=== PATIENT | female | born 2000 | race American Indian/Alaskan Native ===

== ENCOUNTER 2018-02-10 16:14 | Emergency (ER) | payer MEDICAID, OTHER ==
[2018-02-10] MEDS ORDERED: ZOFRAN ODT PO ONE (18:11)
--- NOTE | 2018-02-10 18:28 | Emergency Department Report ---
Blank Doc - Documentation Documentation: Patient is a 18-year-old Somali female who is presenting with nausea vomiting for one week. Patient states that she can keep down some dry foods such as pretzels and crackers however that she is unable to keep any other foods down. Patient states that she has not taken her last control shot and feels as though this is now worn out. Patient is not sure if she is at this time. Patient has not had a menses since before her last Depo-Provera shot.
[2018-02-10 19:23] LABS: Basophils # (Auto) 0.1 K/mm3 (0.0-0.1); Basophils % (Auto) 0.8 % (0.0-1.8); Eosinophils # (Auto) 0.1 K/mm3 (0.0-0.4); Eosinophils % (Auto) 0.9 % (0.0-4.3); Hematocrit 41.4 % (30.3-42.9); Hemoglobin 13.9 gm/dl (10.1-14.3); Lymphocytes # (Auto) 2.5 K/mm3 (1.2-5.4); Lymphocytes % (Auto) 24.5 % (13.4-35.0); Mean Corpuscular HGB Conc 34 % (30-34); Mean Corpuscular Hemoglobin 28 pg (28-32); Mean Corpuscular Volume 84 fl (79-97); Monocytes # (Auto) 0.3 K/mm3 (0.0-0.8); Monocytes % (Auto) 3.2 % (0.0-7.3); Platelet Count 381 K/mm3 (140-440); Red Blood Count 4.91 M/mm3 (3.65-5.03); Red Cell Distribution Width 14.4 % (13.2-15.2)
--- NOTE | 2018-02-10 19:26 | Emergency Department Report ---
Vomiting/Diarrhea - HPI Chief Complaint: Nausea/Vomiting/Diarrhea Stated Complaint: NAUSEA Time Seen by Provider: 02/10/18 17:55 Duration: 3 Days Severity: mild Nausea/Vomiting Severity: Mild Diarrhea Severity: None Pain Severity: None Symptoms: Yes Able to Tolerate Fluids, No Watery Diarrhea, No Bloody diarrhea, No Fever, No Recent Unusual Foods, No Recent Untreated Water, No Recent use of Antibiotics, No Family w/ Similar Symptoms, No Contacts w/ Similar Symptoms, No Rash, No Hematuria, No Recent URI Symptoms Other History: This is a 18-year-old female nontoxic, well nourished in appearance, no acute signs of distress presents to the ED with c/o of intermittent nausea and vomiting 3 days. Patient stated that she is able to tolerate pretzels and crackers. She is also able to tolerate fluids. Patient states that she has not taken her last control shot and feels as though this is now worn out. Patient is not sure if she is at this time. Patient denies any abdominal pain or abdominal distention. Patient denies any urinary symptoms. Patient denies any chest pain, short of breath, fever, chills , headache, stiff neck, back pain. Patient states allergies to bananas strawberries but denies past medical history. ED Review of Systems ROS: Stated complaint: NAUSEA Other details as noted in HPI Constitutional: denies: chills, fever Eyes: denies: eye pain, eye discharge, vision change ENT: denies: ear pain, throat pain Respiratory: denies: cough, shortness of breath, wheezing Cardiovascular: denies: chest pain, palpitations Endocrine: no symptoms reported Gastrointestinal: nausea, vomiting. denies: abdominal pain, diarrhea, constipation Genitourinary: denies: urgency, dysuria, discharge Musculoskeletal: denies: back pain, joint swelling, arthralgia Skin: denies: rash, lesions Neurological: denies: headache, weakness, paresthesias Psychiatric: denies: anxiety, depression Hematological/Lymphatic: denies: easy bleeding, easy bruising ED Past Medical Hx - Past Medical History Previous Medical History?: No Hx Psychiatric Treatment: No - Surgical History Past Surgical History?: No - Social History Smoking Status: Never Smoker Substance Use Type: None - Medications Home Medications: Home Medications Medication Instructions Recorded Confirmed Last Taken Type Acetaminophen/Codeine 1 tab PO Q6H PRN #20 tab 06/20/14 Unknown Rx [Acetaminophen-Codeine #3 TAB] Ibuprofen [Motrin] 600 mg PO Q8H PRN #40 tablet 06/20/14 Unknown Rx Ondansetron [Zofran Odt] 4 mg PO Q8HR PRN #20 tab.rapdis 02/10/18 Unknown Rx Vomiting Diarrhea Exam - Exam General: Vital signs noted. No distress. Alert and acting appropriately. GENERAL: The patient is a well-developed, well-nourished in no apparent distress. Patient is alert and acting appropriately for age. Alert and oriented 3, no apparent distress, normal gait, atraumatic. HEENT: Head is normocephalic and atraumatic. PERRL, Extraocular muscles are intact. Pupils are equal, round, and reactive to light and accommodation. Nares appeared normal. Mouth is well hydrated and without lesions. Mucous membranes are moist. Posterior pharynx clear of any exudate or lesions. Mouth is well hydrated and without lesions. Tonsils not erythematous or swollen. Uvula midline. Tongue elevated. Mucous members are moist. Posterior pharynx clear, no exudate or lesions. Patent airways. NECK: Supple. No carotid bruits. No lymphadenopathy or thyromegaly.nontender. No meningitic signs are noted. LUNGS: Clear to auscultation. Non labor breathing. No intercostal retractions. Symmetrical with respiration, no wheezing, no rales, or crackles. HEART: Regular rate and rhythm without murmur, rubs or gallops. No reproducible. S1, S2 present, regular rate and rhythm without murmur, no rubs, no gallops. ABDOMEN: Soft, nontender, and nondistended. Positive bowel sounds. No hepatosplenomegaly was noted. No guarding or rebound tenderness, negative epigastric bruit. Negative psoas sign, negative yeung sign, negative McBurneys sign EXTREMITIES: Without any cyanosis, clubbing, rash, lesions or edema. Peripheral pulses intact. Capillary refill less than 2 seconds. Full range of motion bilaterally. NEUROLOGIC: Cranial nerves II through XII are grossly intact. Alert and oriented x 3. Normal gait. Symmetrical strength and sensation. Reflexes 2+ throughout. Cerebellar testing normal. GCS score of 15. PSYCHIATRIC: Normal affect with no suicidal or homicidal ideations. HEENT: Yes Moist Mucous Membranes, No Pharyngeal Erythema, No Pharyngeal Exudates, No Rhinorrhea, No Conjuctival Injection, No Frontal Tenderness, No Maxillary Tenderness Neck: No Adenopathy, No Rigidity Lungs: Yes Clear Lung Sounds, Yes Good Air Exchange, No Wheezes, No Stridor, No Cough, No Nasal Flaring, No Retractions, No Use of Accessory Muscles Heart exam: Regular: Yes, Murmur: No, Tachycardia: No Abdomen: Tenderness: No, Peritoneal Signs: No, Distention: No, Hyperactive Bowel sounds: No Skin exam: Rash: No, Edema: No, Normal turgor: Yes Neurologic: Alert and oriented, no deficits. Musculoskeletal: Unremarkable. ED Course Vital Signs 02/10/18 16:25 Temperature 98.6 F Pulse Rate 77 Respiratory 16 Rate Blood Pressure 122/75 O2 Sat by Pulse 99 Oximetry - Reevaluation(s) Reevaluation #1: 02/10/18 19:24 Patient is speaking in full sentences with no signs of distress noted. Reevaluation #2: 02/10/18 19:24 Patient is drinking apple juice after Zofran and patient tolerated well with no nausea vomiting. - Consultations Consultation #1: 02/10/18 19:24 Patient has been consulted with Dr. Pedroza about patient history, physical exam , and labs and examined and screened patient and agrees to ED plan of care and discharge plan of care. ED Medical Decision Making - Medical Decision Making This is a 18-year-old female that presents with nausea vomiting. Patient is stable was examined by me and Dr. Pedroza. Upon examination there is no abdominal tenderness or abdominal distention. Labs and UA obtained. Patient did receive Zofran in the ED which pasted his symptoms has resolved and subsided. Patient drank 2 apple juices in the ED with no nausea vomiting. Patient tolerated well by mouth challenge. Patient is discharged with Zofran. Patient was instructed to Follow-up with a primary care doctor in 3-5 days or if symptoms worsen and continue return to emergency room as soon as possible. At time of discharge, the patient does not seem toxic or ill in appearance. No acute signs of distress noted. Patient agrees to discharge treatment plan of care. No further questions noted by the patient. Critical care attestation.: If time is entered above; I have spent that time in minutes in the direct care of this critically ill patient, excluding procedure time. ED Disposition Clinical Impression: Nausea & vomiting Qualifiers: Vomiting type: unspecified Vomiting Intractability: non-intractable Qualified Code(s): R11.2 - Nausea with vomiting, unspecified Disposition: - TO HOME OR SELFCARE Is pt being admited?: No Does the pt Need Aspirin: No Condition: Stable Instructions: Acute Nausea and Vomiting (ED), Ondansetron (By mouth) Additional Instructions: Follow-up with a primary care doctor in 3-5 days or if symptoms worsen and continue return to emergency room as soon as possible. Prescriptions: Ondansetron [Zofran Odt] 4 mg PO Q8HR PRN #20 tab.rapdis PRN Reason: Nausea Referrals: PRIMARY CARE, [Primary Care Provider] - 3-5 Days SHERIF ELAINE MD [Staff Physician] - 3-5 Days [facility] [Outside] - 3-5 Days [facility] [Outside] - 3-5 Days Forms: Work/School Release Form(ED)
[2018-02-10 19:29] LABS: Bilirubin,Urine NEG (Negative); Blood,Urine NEG (Negative); Color,Urine Yellow (Yellow); Mucus,Urine FEW /HPF; Protein,Urine <15 mg/dL mg/dL (Negative); Urobilinogen,Urine < 2.0 mg/dL (<2.0); WBC,Urine < 1.0 /HPF (0.0-6.0)
[2018-02-10 19:35] LABS: BUN/Creatinine Ratio 14; Blood Urea Nitrogen 7 mg/dL (7-17); Calcium 8.6 mg/dL (8.4-10.2); Hemolysis Index 4; Lipase 26 units/L (13-60)
[2018-02-10 19:38] LABS: HCG Qualitative,Urine Negative (Negative)
[2018-02-10 19:59] VITALS: BP 115/70
== END 2018-02-10 19:54 | disposition home or self-care (01) ==
LOC: ED 16:14
DX: R11.2 Nausea with vomiting, unspecified (principal)
CPT/HCPCS: 36415; 80048; 81001; 81025; 83690; 85025; 99283; Q0162

== ENCOUNTER 2018-06-16 22:34 | Emergency (ER) | payer SELFPAY ==
[2018-06-16 23:48] VITALS: BP 136/83
--- NOTE | 2018-06-17 01:30 | XRay Report ---
FINAL REPORT EXAM: XR CHEST ROUTINE 2V HISTORY: CONNIE/chest congestion TECHNIQUE: PA and lateral views of the chest were obtained. PRIORS: None. FINDINGS: There are no focal consolidations to suggest pneumonia. No large pleural effusion. No pneumothorax. Cardiac silhouette and mediastinal structures are unremarkable. No acute osseous abnormality identified. IMPRESSION: No radiographic evidence of acute cardiopulmonary disease.
--- NOTE | 2018-06-17 01:46 | Emergency Department Report ---
HPI - General Chief Complaint: Upper Respiratory Infection - HPI HPI: Waiting room triage The patient is 18-year-old female presenting with chief complaint of fever and congestion. The patient states for one week she's had fever rhinorrhea nasal congestion and occasional cough productive of dark sputum. Patient admits to occasional nausea with vomiting. Location: [See above] Duration: One week Quality: Congested Severity: Moderate Modifying factors: [see above] Context: [see above] Mode of transportation: [not driving] ED Past Medical Hx - Past Medical History Previous Medical History?: No - Surgical History Past Surgical History?: No - Family History Family history: no significant - Social History Smoking Status: Never Smoker Substance Use Type: Alcohol (occasional) - Medications Home Medications: Home Medications Medication Instructions Recorded Confirmed Last Taken Type Acetaminophen/Codeine 1 tab PO Q6H PRN #20 tab 06/20/14 Unknown Rx [Acetaminophen-Codeine #3 TAB] Ibuprofen [Motrin] 600 mg PO Q8H PRN #40 tablet 06/20/14 Unknown Rx Ondansetron [Zofran Odt] 4 mg PO Q8HR PRN #20 tab.rapdis 02/10/18 Unknown Rx Azithromycin [Zithromax Z-IDRIS] 0 mg PO DAILY #6 tab 06/17/18 Unknown Rx Benzonatate [Tessalon Perle] 100 mg PO TID PRN #30 capsule 06/17/18 Unknown Rx Ibuprofen [Ibu] 800 mg PO Q8H PRN #20 tablet 06/17/18 Unknown Rx Promethazine [Phenergan TAB] 25 mg PO Q6HR PRN #20 tab 06/17/18 Unknown Rx Tramadol HCl [Ultram] 50 - 100 mg PO Q6H PRN #10 tablet 06/17/18 Unknown Rx ED Review of Systems ROS: Stated complaint: FEVER/HEADACHE/CONGESTION Other details as noted in HPI Constitutional: fever Eyes: denies: eye pain ENT: congestion Respiratory: cough Endocrine: no symptoms reported Gastrointestinal: nausea, vomiting Neurological: headache Physical Exam - Physical Exam Vital Signs: Vital Signs 06/16/18 23:46 Pulse Rate 93 H Respiratory 18 Rate Blood Pressure 136/83 O2 Sat by Pulse 98 Oximetry Physical Exam: GENERAL: The patient is well-developed well-nourished female sitting in chair not appearing to be in acute distress HEENT: Normocephalic. Atraumatic. Extraocular motions are intact. Patient has moist mucous membranes. TMs clear bilaterally. Oropharynx clear NECK: Supple. No meningitic signs are noted. There is no nuchal rigidity CHEST/LUNGS: Clear to auscultation. There is no respiratory distress noted. HEART/CARDIOVASCULAR: Regular. There is no tachycardia. There is no gallop rub or murmur. SKIN: There is no rash. There is no edema. There is no diaphoresis. NEURO: The patient is awake, alert, and oriented. The patient is cooperative. The patient has no focal neurologic deficits. The patient has normal speech and gait. Cranial nerves II through XII grossly intact, no drift MUSCULOSKELETAL: There is no evidence of acute injury. ED Course Vital Signs 06/16/18 23:46 Pulse Rate 93 H Respiratory 18 Rate Blood Pressure 136/83 O2 Sat by Pulse 98 Oximetry ED Medical Decision Making - Radiology Data Radiology results: report reviewed (chest x-ray), image reviewed (chest x-ray) interpreted by me: Chest x-ray-no focal infiltrates, no pneumothorax [facility] [address] [place] [address] XRay Report Signed Patient: JOSE ELIAS HERMOSILLO MR#: [id number] : 2000 Acct:[id number] Age/Sex: 18 / F ADM Date: 06/16/18 Loc: ED Attending Dr: Ordering Physician: JASMEET MARES MD Date of Service: 06/16/18 Procedure(s): XR chest routine 2V Accession Number(s): [id number] cc: JASMEET MARES MD Fluoro Time In Minutes: FINAL REPORT EXAM: XR CHEST ROUTINE 2V HISTORY: CONNIE/chest congestion TECHNIQUE: PA and lateral views of the chest were obtained. PRIORS: None. FINDINGS: There are no focal consolidations to suggest pneumonia. No large pleural effusion. No pneumothorax. Cardiac silhouette and mediastinal structures are unremarkable. No acute osseous abnormality identified. IMPRESSION: No radiographic evidence of acute cardiopulmonary disease. Transcribed By: DT Dictated By: RENATE CAIN DO Electronically Authenticated By: RENATE CAIN DO Signed Date/Time: 06/17/18128 DD/ 8 TD/TT: 06/17/18128 - Differential Diagnosis URI Critical care attestation.: If time is entered above; I have spent that time in minutes in the direct care of this critically ill patient, excluding procedure time. ED Disposition Clinical Impression: URI (upper respiratory infection) Disposition: TO HOME OR SELFCARE Is pt being admited?: No Does the pt Need Aspirin: No Condition: Stable Instructions: Upper Respiratory Infection (ED) Additional Instructions: Return to the emergency department immediately should you develop worsening symptoms, fever, inability to tolerate food or liquid or any other concerns. Prescriptions: Azithromycin [Zithromax Z-IDRIS] 0 mg PO DAILY #6 tab Benzonatate [Tessalon Perle] 100 mg PO TID PRN #30 capsule PRN Reason: Cough Ibuprofen [Ibu] 800 mg PO Q8H PRN #20 tablet PRN Reason: Pain, Moderate (4-6) Promethazine [Phenergan TAB] 25 mg PO Q6HR PRN #20 tab PRN Reason: Nausea Tramadol HCl [Ultram] 50 - 100 mg PO Q6H PRN #10 tablet PRN Reason: Pain , Severe (7-10) Referrals: ERNIE CHO MD [Staff Physician] - 3-5 Days Time of Disposition: 01:50
== END 2018-06-17 02:19 | disposition home or self-care (01) ==
LOC: ED 22:34
DX: J06.9 Acute upper respiratory infection, unspecified (principal); R11.2 Nausea with vomiting, unspecified; Z91.018 Allergy to other foods
CPT/HCPCS: 71046; 99283

== ENCOUNTER 2020-12-12 13:22 | Observation (INO) | payer MEDICAID ==
[2020-12-12] MEDS ORDERED: SODIUM CHLORIDE 0.9% 1000 ML 1,000 ML IV ONE (14:03)
[2020-12-12] MEDS ORDERED: ONDANSETRON 4 MG/2 ML INJ IV ONE (14:03)
--- NOTE | 2020-12-12 14:05 | Event Note ---
ED Screening Note Date of service: 12/12/20 Time: 14:05 ED Screening Note: 20-year-old female who was 17 weeks , twin gestation, presents to the ER today with complaints of nausea and vomiting which started the beginning of the week. She states that she went to [facility] where she was diagnosed with a UTI was started on Keflex. She was also prescribed Zofran. Patient states that she has continued to vomit despite taking the Zofran. She also has leftover Phenergan which she is also been taking without much relief of her nausea and vomiting. She also started with diarrhea yesterday. She denies any abdominal pain. She denies any URI symptoms or cough. She denies UTI symptoms. She states she has not been able to tolerate the Keflex due to the vomiting. She is G2, P0 Ab1. OBGYN is Dr Jacobs This initial assessment/diagnostic orders/clinical plan/treatment(s) is/are subject to change based on patients health status, clinical progression and re- assessment by fellow clinical providers in the ED. Further treatment and workup at subsequent clinical providers discretion. Patient/guardian urged not to elope from the ED as their condition may be serious if not clinically assessed and managed. Initial orders include: CBC, CMP, urinalysis, blood cultures and lactic acid
[2020-12-12 14:39] LABS: Hematocrit 38.1 % (30.3-42.9); Hemoglobin 13.2 gm/dl (10.1-14.3); Mean Corpuscular HGB Conc 35 % (30-34); Mean Corpuscular Volume 83 fl (79-97); Platelet Count 332 K/mm3 (140-440); Red Blood Count 4.57 M/mm3 (3.65-5.03); Red Cell Distribution Width 15.3 % (13.2-15.2)
[2020-12-12] MEDS ORDERED: ACETAMINOPHEN 500 MG TAB PO ONE (16:48)
--- NOTE | 2020-12-12 16:54 | Emergency Department Report ---
ED HPI - General Chief complaint: Nausea/Vomiting/Diarrhea Stated complaint: NAUSEA/DIARRHEA/UTI Time Seen by Provider: 12/12/20 13:43 Source: patient Mode of arrival: Ambulatory Limitations: No Limitations - History of Present Illness Initial comments: 20-year-old female, , currently 17 weeks with twin gestation, presents to the ED with nausea and vomiting. Patient states she has been experiencing nausea and vomiting throughout her entire . She reports 2 days ago she was seen at [facility] for vomiting. Patient states she was given IV fluids and Tylenol. During that visit, she was also diagnosed with a UTI, for which she was given a prescription for Keflex. Patient denies any abdominal pain, fever, chills, dysuria, urinary frequency, or back pain. She does state that her urine was somewhat foul-smelling. Patient states she was able to take a couple of pills, however last night her nausea and vomiting returned and she has been unable to tolerate p.o. Patient also reports onset of diarrhea last night as well. Patient denies fever, however she is febrile at triage. She denies any cough, shortness of breath, loss of smell or taste, body aches, or known exposure to anyone who has tested positive for COVID-19. OB: Dr. Adriana Jacobs MD Complaint: other -: days(s) (3) Severity: moderate Quality: other (painless) Improves with: none Worsens with: none Associated symptoms: nausea/vomiting. denies: vaginal bleeding, vaginal dis charge, abdominal pain, dysuria, headache, shortness of breath Vaginal bleeding: none :: Yes Number of weeks : 17 Pre-nelson care: followed by OB - Related Data : 1 Para: 0 Previous Rx's Medication Instructions Recorded Last Taken Type Acetaminophen/Codeine 1 tab PO Q6H PRN #20 tab 06/20/14 Unknown Rx [Acetaminophen-Codeine #3 TAB] Ibuprofen [Motrin] 600 mg PO Q8H PRN #40 tablet 06/20/14 Unknown Rx Ondansetron [Zofran Odt] 4 mg PO Q8HR PRN #20 tab.rapdis 02/10/18 Unknown Rx Azithromycin [Zithromax Z-IDRIS] 0 mg PO DAILY #6 tab 06/17/18 Unknown Rx Benzonatate [Tessalon Perle] 100 mg PO TID PRN #30 capsule 06/17/18 Unknown Rx Ibuprofen [Ibu] 800 mg PO Q8H PRN #20 tablet 06/17/18 Unknown Rx Promethazine [Phenergan TAB] 25 mg PO Q6HR PRN #20 tab 06/17/18 Unknown Rx Tramadol HCl [Ultram] 50 - 100 mg PO Q6H PRN #10 tablet 06/17/18 Unknown Rx Allergies Allergy/AdvReac Type Severity Reaction Status Date / Time banana [Banana] Allergy Shortness Verified 12/12/20 13:37 of Breath strawberry [[place]] Allergy Shortness Verified 12/12/20 13:37 of Breath ED Review of Systems ROS: Stated complaint: NAUSEA/DIARRHEA/UTI Other details as noted in HPI Comment: All other systems reviewed and negative Constitutional: denies: chills, fever ENT: other (denies loss of smell or taste) Respiratory: denies: cough, shortness of breath Gastrointestinal: nausea, vomiting, diarrhea. denies: abdominal pain Genitourinary: denies: dysuria, frequency, discharge Musculoskeletal: denies: back pain ED Past Medical Hx - Past Medical History Previous Medical History?: No Hx Psychiatric Treatment: No - Surgical History Past Surgical History?: No - Social History Smoking Status: Never Smoker - Medications Home Medications: Home Medications Medication Instructions Recorded Confirmed Last Taken Type Acetaminophen/Codeine 1 tab PO Q6H PRN #20 tab 06/20/14 Unknown Rx [Acetaminophen-Codeine #3 TAB] Ibuprofen [Motrin] 600 mg PO Q8H PRN #40 tablet 06/20/14 Unknown Rx Ondansetron [Zofran Odt] 4 mg PO Q8HR PRN #20 tab.rapdis 02/10/18 Unknown Rx Azithromycin [Zithromax Z-IDRIS] 0 mg PO DAILY #6 tab 06/17/18 Unknown Rx Benzonatate [Tessalon Perle] 100 mg PO TID PRN #30 capsule 06/17/18 Unknown Rx Ibuprofen [Ibu] 800 mg PO Q8H PRN #20 tablet 06/17/18 Unknown Rx Promethazine [Phenergan TAB] 25 mg PO Q6HR PRN #20 tab 06/17/18 Unknown Rx Tramadol HCl [Ultram] 50 - 100 mg PO Q6H PRN #10 tablet 06/17/18 Unknown Rx ED Physical Exam - General Limitations: No Limitations General appearance: alert, in no apparent distress - Head Head exam: Present: atraumatic, normocephalic - Eye Eye exam: Present: normal appearance, EOMI - ENT ENT exam: Present: mucous membranes moist - Neck Neck exam: Present: normal inspection - Respiratory Respiratory exam: Present: normal lung sounds bilaterally. Absent: respiratory distress - Cardiovascular Cardiovascular Exam: Present: normal rhythm, tachycardia - GI/Abdominal GI/Abdominal exam: Present: soft, other (gravid abdomen). Absent: tenderness - Extremities Exam Extremities exam: Present: normal inspection - Neurological Exam Neurological exam: Present: alert, oriented X3 - Psychiatric Psychiatric exam: Present: normal affect, normal mood - Skin Skin exam: Present: warm, dry, intact, normal color ED Course Vital Signs 12/12/20 12/12/20 12/12/20 13:40 15:34 16:34 Temperature 101.0 F H Pulse Rate 143 H 129 H 114 H Respiratory 20 16 18 Rate Blood Pressure 130/83 Blood Pressure 130/85 145/80 [Left] Blood Pressure [Right] O2 Sat by Pulse 90 18 L 99 Oximetry 12/12/20 12/12/20 12/12/20 18:30 19:16 20:46 Temperature 101.2 F H 103.1 F H Pulse Rate 112 H 132 H Respiratory 18 17 Rate Blood Pressure Blood Pressure 109/71 [Left] Blood Pressure 112/63 [Right] O2 Sat by Pulse 98 97 Oximetry - Reevaluation(s) Reevaluation #1: 12/12/20 20:01 Patient is NOT hypoxic. Charted values of 90% and 18% are INCORRECT. - Consultations Consultation #1: 12/12/20 19:38 Spoke w/ Dr Jacobs, pt's OB. No privileges here, but believes pt needs admission. 12/12/20 19:51 Spoke w/ Dr Gay, OB on-call at [facility]. Agrees to admit patient. ED Medical Decision Making - Lab Data Result diagrams: 12/12/20 14:20 12/12/20 14:20 - Radiology Data Radiology results: report reviewed, image reviewed - Medical Decision Making 20-year-old female, , currently 17 weeks with twin gestation, presents to the ED with vomiting, diarrhea, and fever. Initial temp of 101, and patient tachycardic into the 140s on arrival. White count slightly elevated at 12.2. Lactic acid of 3.1. Patient denies any abdominal pain. Reports diagnosis of UTI 2 days ago, however UA today is negative. Chest x-ray is negative as well. O2 sats are normal, despite error in charting of initial O2 sats. Patient is 98% on room, with no respiratory distress. Patient has been given IV fluids and Tylenol. Blood cultures drawn, Rocephin given. Repeat lactic acid has improved to 1.1. Patient remains febrile, however can only give Tylenol due to her , no NSAIDs. Spoke with patient's private [employer] who recommends admission, however she does not have privileges here at [facility]. I spoke with Dr. Gay, on-call physician here at the hospital, who agrees to admit the patient. Coronavirus PCR has been ordered, however will not be done until in the morning. - Differential Diagnosis UTI, gastroenteritis, pneumonia, COVID-19 Critical Care Time: Yes Critical care time in (mins) excluding proc time.: 35 Critical care attestation.: If time is entered above; I have spent that time in minutes in the direct care of this critically ill patient, excluding procedure time. Critical Care Time: 35 min ED Disposition Clinical Impression: 17 weeks gestation of , Twin gestation in second trimester, Vomiting and diarrhea, SIRS (systemic inflammatory response syndrome), Fever Disposition: [id number] OP ADMIT IP TO THIS HOSP Is pt being admited?: Yes Condition: Stable Time of Disposition: 19:55
[2020-12-12] MEDS ORDERED: cefTRIAXone/NS 1 GM/50 ML 1 GM/50 ML BAG IV ONE (17:01)
[2020-12-12] MEDS ORDERED: SODIUM CHLORIDE 0.9% 1000 ML IV SOLN IV ONE (17:02)
[2020-12-12 17:12] LABS: Bilirubin,Urine NEG (Negative); Blood,Urine NEG (Negative); Color,Urine Amber (Yellow); Mucus,Urine 3+ /HPF; Urobilinogen,Urine < 2.0 mg/dL (<2.0)
[2020-12-12 17:14] LABS: Alanine Aminotransferase 37 units/L (7-56); Albumin 3.7 g/dL (3.9-5); Blood Urea Nitrogen 7 mg/dL (7-17); Calcium 8.6 mg/dL (8.4-10.2); Hemolysis Index 7
[2020-12-12 17:19] LABS: BUN/Creatinine Ratio 12
[2020-12-12 17:22] LABS: Band Neutrophils # (Manual) 1.7 K/mm3; Total Cells Counted 100
[2020-12-12 17:23] LABS: RBC Morphology Normal
[2020-12-12 17:25] LABS: Large Platelets Rare; Platelet Estimate Consistent w Auto
--- NOTE | 2020-12-12 17:59 | XRay Report ---
CHEST 1 VIEW 1751 INDICATION / CLINICAL INFORMATION: fever COMPARISON: None available. FINDINGS: SUPPORT DEVICES: None HEART / MEDIASTINUM: No significant abnormality. LUNGS / PLEURA: No significant pulmonary or pleural abnormality. No pneumothorax. ADDITIONAL FINDINGS: No significant additional findings. IMPRESSION: No significant acute abnormality Signer Name: Tna Raymundo MD Signed: 12/12/2020 5:55 PM Workstation Name: [id number]
--- NOTE | 2020-12-12 19:42 | Ultrasound Report ---
Limited obstetrical ultrasound INDICATION: 17 week , vomiting COMPARISON: None FINDINGS: Twin intrauterine is noted. Fetus A: heart rate 169 bpm, cephalic position, estimated gestational age by BPD 17 weeks 0 day s Fetus B: heart rate 170 bpm, transverse position with head to the maternal left, estimated gest ational age by BPD 17 weeks 3 days Placenta is posterior and free of the internal cervical os. Amniotic fluid volume appears appropriate and JUSTICE is within normal limits at 8.5 cm. In a brief examination, no obvious abnormalities are seen . Signer Name: Tan Raymundo MD Signed: 12/12/2020 7:37 PM Workstation Name: [id number]
[2020-12-12] MEDS ORDERED: ONDANSETRON 4 MG/2 ML INJ IV PRN ×2 (21:55→23:44)
[2020-12-12] MEDS ORDERED: ACETAMINOPHEN 500 MG TAB PO PRN (21:55)
[2020-12-12] MEDS: LACTATED RINGERS 1,000 ML IV SCH (23:24)
--- NOTE | 2020-12-12 23:40 | History and Physical Report ---
History of Present Illness Date of examination: 12/12/20 Date of admission: 12/12/20 19:57 Chief complaint: pt came to the ER with nausea, vomiting and diarrhea History of present illness: at 17.4wks with monomono twin gestation with EDC 05/18/21 per pt report. 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 Pt came here because she lives nearby this hospital. Pt denies contractions, leakage of fluid or headache. Past History Past Medical History: no pertinent history Past Surgical History: no surgical history Family/Genetic History: none Social history: no significant social history - Obstetrical History Expected Date of Delivery: 05/18/21 Actual Gestation: 17 Week(s) 5 Day(s) : 2 (pt states this preg is twins in the same sac and to be delivered at 26wks) Spontaneous Abortions: 1 Number of Living Children: 0 Medications and Allergies Allergies Allergy/AdvReac Type Severity Reaction Status Date / Time banana [Banana] Allergy Shortness Verified 12/12/20 13:37 of Breath strawberry [[place]] Allergy Shortness Verified 12/12/20 13:37 of Breath Home Medications Medication Instructions Recorded Confirmed Last Taken Type Acetaminophen/Codeine 1 tab PO Q6H PRN #20 tab 06/20/14 Unknown Rx [Acetaminophen-Codeine #3 TAB] Ibuprofen [Motrin] 600 mg PO Q8H PRN #40 tablet 06/20/14 Unknown Rx Ondansetron [Zofran Odt] 4 mg PO Q8HR PRN #20 tab.rapdis 02/10/18 Unknown Rx Azithromycin [Zithromax Z-IDRIS] 0 mg PO DAILY #6 tab 06/17/18 Unknown Rx Benzonatate [Tessalon Perle] 100 mg PO TID PRN #30 capsule 06/17/18 Unknown Rx Ibuprofen [Ibu] 800 mg PO Q8H PRN #20 tablet 06/17/18 Unknown Rx Promethazine [Phenergan TAB] 25 mg PO Q6HR PRN #20 tab 06/17/18 Unknown Rx Tramadol HCl [Ultram] 50 - 100 mg PO Q6H PRN #10 tablet 06/17/18 Unknown Rx Active Meds: Active Medications Acetaminophen (Acetaminophen 500 Mg Tab) 1,000 mg PO Q6H PRN PRN Reason: Pain, Mild (1-3) Lactated Ringer's (Lactated Ringers) 1,000 mls @ 125 mls/hr IV DIRECT KATIE Last Admin: 12/12/20 23:24 Dose: 125 mls/hr Documented by: Ceftriaxone Sodium (Rocephin/Ns 1 Gm/50 Ml) 1 gm in 50 mls @ 100 mls/hr IV Q24HR KATIE; Protocol Ondansetron HCl (Ondansetron 4 Mg/2 Ml Inj) 4 mg IV Q8H PRN PRN Reason: Nausea And Vomiting Review of Systems All systems: negative (nausea, vomiting, diarrhea) - Vital Signs Vital signs: Vital Signs Temp Pulse Resp BP Pulse Ox 101.0 F H 143 H 20 130/83 90 12/12/20 13:40 12/12/20 13:40 12/12/20 13:40 12/12/20 13:40 12/12/20 13:40 Temp Pulse Resp BP Pulse Ox 100.6 F H 126 H 18 132/78 97 12/12/20 21:43 12/12/20 21:31 12/12/20 21:43 12/12/20 21:43 12/12/20 20:46 - Physical Exam Breasts: Positive: deferred Lungs: Positive: Normal air movement Abdomen: Positive: soft Uterus: Positive: enlarged (non-tender gravid) Extremities: Positive: normal - Obstetrical FHR comments: FHR x2 via dopplers per nurse report Uterine Contraction Monitor Mode: Palpation Uterine Contraction Pattern: Absent Results Result Diagrams: 12/12/20 14:20 12/12/20 14:20 Abnormal lab results 12/12/20 12/12/20 12/12/20 Range/Units 14:20 14:20 14:20 WBC 12.2 H (4.5-11.0) K/mm3 MCHC 35 H (30-34) % RDW 15.3 H (13.2-15.2) % Seg Neuts % (Manual) 77.0 H (40.0-70.0) % Lymphocytes % (Manual) 5.0 L (13.4-35.0) % Seg Neutrophils # Man 9.4 H (1.8-7.7) K/mm3 Lymphocytes # (Manual) 0.6 L (1.2-5.4) K/mm3 Sodium 136 L (137-145) mmol/L Potassium 3.4 L (3.6-5.0) mmol/L Carbon Dioxide 19 L (22-30) mmol/L Glucose 109 H (65-100) mg/dL Lactic Acid (0.7-2.0) mmol/L Magnesium (1.7-2.3) mg/dL AST 50 H (5-40) units/L Albumin 3.7 L (3.9-5) g/dL Lipase 11 L (13-60) units/L HCG, Quant 55624 H (0-4) mIU/mL Ur Specific [place] (1.003-1.030) 12/12/20 12/12/20 12/12/20 Range/Units 14:20 14:20 16:55 WBC (4.5-11.0) K/mm3 MCHC (30-34) % RDW (13.2-15.2) % Seg Neuts % (Manual) (40.0-70.0) % Lymphocytes % (Manual) (13.4-35.0) % Seg Neutrophils # Man (1.8-7.7) K/mm3 Lymphocytes # (Manual) (1.2-5.4) K/mm3 Sodium (137-145) mmol/L Potassium (3.6-5.0) mmol/L Carbon Dioxide (22-30) mmol/L Glucose (65-100) mg/dL Lactic Acid 3.10 H* (0.7-2.0) mmol/L Magnesium 1.40 L (1.7-2.3) mg/dL AST (5-40) units/L Albumin (3.9-5) g/dL Lipase (13-60) units/L HCG, Quant (0-4) mIU/mL Ur Specific [place] 1.032 H (1.003-1.030) All other labs normal. Assessment and Plan Twin gestation. mono/mono chorionic at 17.4wks with febrile morbidity, nausea and vomiting and diarrhea. Proteinuria and elevated LFT's unknown cause; hypokalemia 1. Admit for 23hr observation, U/S done at [facility] and tech reports, the fetuses share one sac. 2. Obtain records in the morning from Dr. Christophe Jacobs's office (pt's superintendent construction) 3. Await blood culture and urine culture results. 4. Covid testing done per ER but none seen, will need to do same 5. Keep IV hydration and zofran prn nausea with good effect 6. Will continue rocephin 1Gm every 24hrs 7. Will replete potassium with K-dur oral med 8. For APA consult in the am 9. Will do baseline 24hr prot Plan of care discussed with patient
[2020-12-13] MEDS ORDERED: POTASSIUM CHLORIDE ER 20 MEQ TAB PO ONE (00:15)
--- NOTE | 2020-12-13 09:26 | Ultrasound Report ---
US OB >= 14 weeks Fetus INDICATION / CLINICAL INFORMATION: VOMITING. COMPARISON: None available. FINDINGS: Viable twin . Amniotic fluid volume is normal, with a fluid index of 8 cm. Placenta is poste rior and free of the cervical os. Baby A heart rate 169. Cephalic presentation. Abdominal circumference 11.3 cm, 17 weeks 1 day Biparietal diameter 3.6 cm, 17 weeks 0 days. Head circumference 13.5 cm, 17 weeks 0 days Femur length 2.5 cm, 17 weeks 4 days Baby B heart rate 170. Transverse presentation, with the head to the maternal left. Abdominal circumference 10.3 cm, 16 weeks 2 days. Femur length 2.3 cm, 17 weeks 0 days. Biparietal diameter 3.7 cm, 17 weeks 3 days. Head circumference 13.5 cm, 17 weeks 0 days IMPRESSION: 1. Viable twin 17 week 1 day intrauterine . Signer Name: Que Thrasher MD Signed: 12/13/2020 9:22 AM Workstation Name: [id number]
--- NOTE | 2020-12-13 09:51 | Progress Note ---
Assessment and Plan - Patient Problems (1) SIRS (systemic inflammatory response syndrome) Current Visit: Yes Status: Acute Plan to address problem: --Currently with fever of unknown origin --Continue Recephin 1g q24h --APA consulted for assistance --COVID test pending --Pending blood and urine cultures --Continue 24H TP given elevated protein in the urine --Zofran PRN --Replete lytes prn -- records pending (2) Twin gestation in second trimester Current Visit: Yes Status: Acute Qualifiers: Multiple gestation type: monochorionic and monoamniotic Qualified Code(s): O30.012 - Twin , monochorionic/monoamniotic, second trimester Plan to address problem: --FHTs x 2 confirmed on admission --repeat FHTs qshift Subjective - Subjective Date of service: 12/13/20 Principal diagnosis: fever of unknown origin, mono/mono twins at 17 weeks Interval history: Patient reports that she is currently feeling well. Denies current N/V/F/C. Reports hx of N/V and watery diarrhea since mid last week. Took some of the Keflex given to her at [place] for presumed UTI. Reports that she came to [facility] because it was to closest hospital. Reports no one near her with COVID. Reports having overall benign PNC thus far with Dr Jacobs in [facility]. Objective - Vital Signs Vital Signs: Vital Signs - 12hr 12/13/20 12/13/20 01:02 08:09 Temperature 98.8 F 98.0 F Pulse Rate 115 H Respiratory 24 18 Rate Blood Pressure 116/73 O2 Sat by Pulse 98 Oximetry - Exam Cardiovascular: Other (mildly tachycardia) Lungs: Clear to auscultation, Normal air movement Abdomen: Present: normal appearance, soft, normal bowel sounds, other (gravid). Absent: tenderness, guarding - Labs Labs: Abnormal Labs 12/12/20 12/12/20 12/12/20 14:20 14:20 14:20 WBC 12.2 H MCHC 35 H RDW 15.3 H Seg Neuts % (Manual) 77.0 H Lymphocytes % (Manual) 5.0 L Seg Neutrophils # Man 9.4 H Lymphocytes # (Manual) 0.6 L Sodium 136 L Potassium 3.4 L Carbon Dioxide 19 L Glucose 109 H Lactic Acid Magnesium AST 50 H Albumin 3.7 L Lipase 11 L HCG, Quant 62231 H Ur Specific [place] 12/12/20 12/12/20 12/12/20 14:20 14:20 16:55 WBC MCHC RDW Seg Neuts % (Manual) Lymphocytes % (Manual) Seg Neutrophils # Man Lymphocytes # (Manual) Sodium Potassium Carbon Dioxide Glucose Lactic Acid 3.10 H* Magnesium 1.40 L AST Albumin Lipase HCG, Quant Ur Specific [place] 1.032 H Laboratory Results - last 24 hr 12/12/20 12/12/20 12/12/20 14:20 14:20 14:20 WBC 12.2 H RBC 4.57 Hgb 13.2 Hct 38.1 MCV 83 MCH 29 MCHC 35 H RDW 15.3 H Plt Count 332 Add Manual Diff Complete Total Counted 100 Seg Neutrophils % Rn Dialysis Seg Neuts % (Manual) 77.0 H Band Neutrophils % 14.0 Lymphocytes % (Manual) 5.0 L Monocytes % (Manual) 4.0 Nucleated RBC % Not Reportable Seg Neutrophils # Man 9.4 H Band Neutrophils # 1.7 Lymphocytes # (Manual) 0.6 L Abs React Lymphs (Man) 0.0 Monocytes # (Manual) 0.5 Eosinophils # (Manual) 0.0 Basophils # (Manual) 0.0 Metamyelocytes # 0.0 Myelocytes # 0.0 Promyelocytes # 0.0 Blast Cells # 0.0 WBC Morphology Not Reportable Hypersegmented Neuts Not Reportable Hyposegmented Neuts Not Reportable Hypogranular Neuts Not Reportable Smudge Cells Not Reportable Toxic Granulation Not Reportable Toxic Vacuolation Not Reportable Dohle Bodies Not Reportable Pelger-Huet Anomaly Not Reportable Ebony Rods Not Reportable Platelet Estimate Consistent w auto Clumped Platelets Not Reportable Plt Clumps, EDTA Not Reportable Large Platelets Rare Giant Platelets Not Reportable Platelet Satelliting Not Reportable Plt Morphology Comment Not Reportable RBC Morphology Normal Dimorphic RBCs Not Reportable Polychromasia Not Reportable Hypochromasia Not Reportable Poikilocytosis Not Reportable Anisocytosis Not Reportable Microcytosis Not Reportable Macrocytosis Not Reportable Spherocytes Not Reportable Pappenheimer Bodies Not Reportable Sickle Cells Not Reportable Target Cells Not Reportable Tear Drop Cells Not Reportable Ovalocytes Not Reportable Helmet Cells Not Reportable [place] Bodies Not Reportable [place] Rings Not Reportable [place] Cells Not Reportable Bite Cells Not Reportable Crenated Cell Not Reportable Elliptocytes Not Reportable Acanthocytes (Spur) Not Reportable Rouleaux Not Reportable Hemoglobin C Crystals Not Reportable Schistocytes Not Reportable Malaria parasites Not Reportable Ganesh Bodies Not Reportable Hem Pathologist Commnt No Sodium 136 L Potassium 3.4 L Chloride 100.3 Carbon Dioxide 19 L Anion Gap 20 BUN 7 Creatinine 0.6 Estimated GFR > 60 BUN/Creatinine Ratio 12 Glucose 109 H Lactic Acid Calcium 8.6 Magnesium Total Bilirubin 0.20 AST 50 H ALT 37 Alkaline Phosphatase 56 Total Protein 6.4 Albumin 3.7 L Albumin/Globulin Ratio 1.4 Lipase 11 L HCG, Quant 18858 H Urine Color Urine Turbidity Urine pH Ur Specific [place] Urine Protein Urine Glucose (UA) Urine Ketones Urine Blood Urine Nitrite Urine Bilirubin Urine Urobilinogen Ur Leukocyte Esterase Urine WBC (Auto) Urine RBC (Auto) Urine Mucus Blood Type Antibody Screen 12/12/20 12/12/20 12/12/20 14:20 14:20 16:55 WBC RBC Hgb Hct MCV MCH MCHC RDW Plt Count Add Manual Diff Total Counted Seg Neutrophils % Seg Neuts % (Manual) Band Neutrophils % Lymphocytes % (Manual) Monocytes % (Manual) Nucleated RBC % Seg Neutrophils # Man Band Neutrophils # Lymphocytes # (Manual) Abs React Lymphs (Man) Monocytes # (Manual) Eosinophils # (Manual) Basophils # (Manual) Metamyelocytes # Myelocytes # Promyelocytes # Blast Cells # WBC Morphology Hypersegmented Neuts Hyposegmented Neuts Hypogranular Neuts Smudge Cells Toxic Granulation Toxic Vacuolation Dohle Bodies Pelger-Huet Anomaly Ebony Rods Platelet Estimate Clumped Platelets Plt Clumps, EDTA Large Platelets Giant Platelets Platelet Satelliting Plt Morphology Comment RBC Morphology Dimorphic RBCs Polychromasia Hypochromasia Poikilocytosis Anisocytosis Microcytosis Macrocytosis Spherocytes Pappenheimer Bodies Sickle Cells Target Cells Tear Drop Cells Ovalocytes Helmet Cells [place] Bodies [place] Rings [place] Cells Bite Cells Crenated Cell Elliptocytes Acanthocytes (Spur) Rouleaux Hemoglobin C Crystals Schistocytes Malaria parasites Ganesh Bodies Hem Pathologist Commnt Sodium Potassium Chloride Carbon Dioxide Anion Gap BUN Creatinine Estimated GFR BUN/Creatinine Ratio Glucose Lactic Acid 3.10 H* Calcium Magnesium 1.40 L Total Bilirubin AST ALT Alkaline Phosphatase Total Protein Albumin Albumin/Globulin Ratio Lipase HCG, Quant Urine Color Darlyn Urine Turbidity Cloudy Urine pH 5.0 Ur Specific [place] 1.032 H Urine Protein 100 mg/dl Urine Glucose (UA) Neg Urine Ketones Tr Urine Blood Neg Urine Nitrite Neg Urine Bilirubin Neg Urine Urobilinogen < 2.0 Ur Leukocyte Esterase Neg Urine WBC (Auto) 5.0 Urine RBC (Auto) 5.0 Urine Mucus 3+ Blood Type Antibody Screen 12/12/20 12/13/20 19:11 00:32 WBC RBC Hgb Hct MCV MCH MCHC RDW Plt Count Add Manual Diff Total Counted Seg Neutrophils % Seg Neuts % (Manual) Band Neutrophils % Lymphocytes % (Manual) Monocytes % (Manual) Nucleated RBC % Seg Neutrophils # Man Band Neutrophils # Lymphocytes # (Manual) Abs React Lymphs (Man) Monocytes # (Manual) Eosinophils # (Manual) Basophils # (Manual) Metamyelocytes # Myelocytes # Promyelocytes # Blast Cells # WBC Morphology Hypersegmented Neuts Hyposegmented Neuts Hypogranular Neuts Smudge Cells Toxic Granulation Toxic Vacuolation Dohle Bodies Pelger-Huet Anomaly Ebony Rods Platelet Estimate Clumped Platelets Plt Clumps, EDTA Large Platelets Giant Platelets Platelet Satelliting Plt Morphology Comment RBC Morphology Dimorphic RBCs Polychromasia Hypochromasia Poikilocytosis Anisocytosis Microcytosis Macrocytosis Spherocytes Pappenheimer Bodies Sickle Cells Target Cells Tear Drop Cells Ovalocytes Helmet Cells [place] Bodies [place] Rings [place] Cells Bite Cells Crenated Cell Elliptocytes Acanthocytes (Spur) Rouleaux Hemoglobin C Crystals Schistocytes Malaria parasites Ganesh Bodies Hem Pathologist Commnt Sodium Potassium Chloride Carbon Dioxide Anion Gap BUN Creatinine Estimated GFR BUN/Creatinine Ratio Glucose Lactic Acid 1.10 Calcium Magnesium Total Bilirubin AST ALT Alkaline Phosphatase Total Protein Albumin Albumin/Globulin Ratio Lipase HCG, Quant Urine Color Urine Turbidity Urine pH Ur Specific [place] Urine Protein Urine Glucose (UA) Urine Ketones Urine Blood Urine Nitrite Urine Bilirubin Urine Urobilinogen Ur Leukocyte Esterase Urine WBC (Auto) Urine RBC (Auto) Urine Mucus Blood Type A NEGATIVE Antibody Screen Negative
--- NOTE | 2020-12-13 12:39 | Consultation ---
History of Present Illness Consult date: 12/13/20 Requesting physician: JEIMY BECKER JR History of present illness: HPI Ms. Washington is a 20 y/o ELMA 05/18/21-presented last pm with N/V and Diarrhea Divide/Divide Twins at 17 5/7 weeks Seen at [place] ER on Wednesday and treated for UTI with Keflex Reports NI's throughout off and on Diarrhea over past few days Denies fevers chills back pain SOB sinus issues , loss of smell , abd pain, vag discharge ----- OB noted elevated Temps - 12/12/20 at 1340 - 101 12/12/20 at 2046 - 103.1 Since 1:02am Temps has been Afeb 98.8 Pulse elevated ? related to temp will check TSH ------- Patient feeling somewhat better Med History neg Surg neg No STD Denies C/D/D -------- Labs CXR neg WBC 12.2 creat at .4 K at 3.4 AST/ALT at 50/37 --------- NIPT Neg - F/F --------- exam Abd soft gravid NT no rebound no guarding - benign Back No CVA ext NT no edema vag deferred Past History Past Medical History: no pertinent history Past Surgical History: no surgical history Family/Genetic History: none - Obstetrical History : 2 (pt states this preg is twins in the same sac and to be delivered at 26wks) Medications and Allergies Allergies Allergy/AdvReac Type Severity Reaction Status Date / Time banana [Banana] Allergy Shortness Verified 12/12/20 13:37 of Breath strawberry [[place]] Allergy Shortness Verified 12/12/20 13:37 of Breath Home Medications Medication Instructions Recorded Confirmed Last Taken Type Acetaminophen/Codeine 1 tab PO Q6H PRN #20 tab 06/20/14 12/13/20 Unknown Rx [Acetaminophen-Codeine #3 TAB] Ibuprofen [Motrin] 600 mg PO Q8H PRN #40 tablet 06/20/14 12/13/20 Unknown Rx Ondansetron [Zofran Odt] 4 mg PO Q8HR PRN #20 tab.rapdis 02/10/18 12/13/20 Unknown Rx Azithromycin [Zithromax Z-IDRIS] 0 mg PO DAILY #6 tab 06/17/18 12/13/20 Unknown Rx Benzonatate [Tessalon Perle] 100 mg PO TID PRN #30 capsule 06/17/18 12/13/20 Unknown Rx Ibuprofen [Ibu] 800 mg PO Q8H PRN #20 tablet 06/17/18 12/13/20 Unknown Rx Promethazine [Phenergan TAB] 25 mg PO Q6HR PRN #20 tab 06/17/18 12/13/20 Unknown Rx Tramadol HCl [Ultram] 50 - 100 mg PO Q6H PRN #10 tablet 06/17/18 12/13/20 Unknown Rx Active Meds: Active Medications Acetaminophen (Acetaminophen 500 Mg Tab) 1,000 mg PO Q6H PRN PRN Reason: Pain, Mild (1-3) Lactated Ringer's (Lactated Ringers) 1,000 mls @ 125 mls/hr IV DIRECT KATIE Last Admin: 12/12/20 23:24 Dose: 125 mls/hr Documented by: Ceftriaxone Sodium (Rocephin/Ns 1 Gm/50 Ml) 1 gm in 50 mls @ 100 mls/hr IV Q24HR KATIE; Protocol Ondansetron HCl (Ondansetron 4 Mg/2 Ml Inj) 4 mg IV Q4H PRN PRN Reason: Nausea And Vomiting Last Admin: 12/12/20 23:52 Dose: 4 mg Documented by: - Vital Signs Vital signs: Vital Signs Temp Pulse Resp BP Pulse Ox 101.0 F H 143 H 20 130/83 90 12/12/20 13:40 12/12/20 13:40 12/12/20 13:40 12/12/20 13:40 12/12/20 13:40 Temp Pulse Resp BP Pulse Ox 98.0 F 115 H 18 116/73 98 12/13/20 08:09 12/13/20 08:09 12/13/20 08:09 12/13/20 08:09 12/13/20 08:09 Results Result Diagrams: 12/12/20 14:20 12/12/20 14:20 Abnormal lab results 12/12/20 12/12/20 12/12/20 Range/Units 14:20 14:20 14:20 WBC 12.2 H (4.5-11.0) K/mm3 MCHC 35 H (30-34) % RDW 15.3 H (13.2-15.2) % Seg Neuts % (Manual) 77.0 H (40.0-70.0) % Lymphocytes % (Manual) 5.0 L (13.4-35.0) % Seg Neutrophils # Man 9.4 H (1.8-7.7) K/mm3 Lymphocytes # (Manual) 0.6 L (1.2-5.4) K/mm3 Sodium 136 L (137-145) mmol/L Potassium 3.4 L (3.6-5.0) mmol/L Carbon Dioxide 19 L (22-30) mmol/L Glucose 109 H (65-100) mg/dL Lactic Acid (0.7-2.0) mmol/L Magnesium (1.7-2.3) mg/dL AST 50 H (5-40) units/L Albumin 3.7 L (3.9-5) g/dL Lipase 11 L (13-60) units/L HCG, Quant 20007 H (0-4) mIU/mL Ur Specific [place] (1.003-1.030) 12/12/20 12/12/20 12/12/20 Range/Units 14:20 14:20 16:55 WBC (4.5-11.0) K/mm3 MCHC (30-34) % RDW (13.2-15.2) % Seg Neuts % (Manual) (40.0-70.0) % Lymphocytes % (Manual) (13.4-35.0) % Seg Neutrophils # Man (1.8-7.7) K/mm3 Lymphocytes # (Manual) (1.2-5.4) K/mm3 Sodium (137-145) mmol/L Potassium (3.6-5.0) mmol/L Carbon Dioxide (22-30) mmol/L Glucose (65-100) mg/dL Lactic Acid 3.10 H* (0.7-2.0) mmol/L Magnesium 1.40 L (1.7-2.3) mg/dL AST (5-40) units/L Albumin (3.9-5) g/dL Lipase (13-60) units/L HCG, Quant (0-4) mIU/mL Ur Specific [place] 1.032 H (1.003-1.030) All other labs normal. Assessment and Plan Impression 1. Divide/Divide Twins at 17 5/7 weeks 2. Fever of Unknown origin 3. Diarrhea - Suspect Gastroenteritis 4. NI's improved 5. Maternal Tachycardia 6. UTI - seen at [place] [facility] and given antibiotics keflex on Wednesday Recommendations 1. Blood and Urine cultures pending 2. Covid Testing pending 3. Would obtain stool cultures and stool for H Pylori antigen 4. CXR done 5. See labs above 6. TSH/Free T4 ordered 7. Clear liquids ( on Zofran ) if tolerating can advance diet 8. If remains afeb for 24 Hours would consider dc 9. 24 Hour urine prot pending
[2020-12-13 13:00] LABS: Amphetamine Screen,Urine PRESUMPTIVE NEGATIVE; Benzodiazepines Screen,Urine PRESUMPTIVE NEGATIVE; Cannabinoid Screen,Urine PRESUMPTIVE NEGATIVE; Cocaine Screen,Urine PRESUMPTIVE NEGATIVE; Methadone Screen,Urine PRESUMPTIVE NEGATIVE; Opiate Screen,Urine PRESUMPTIVE NEGATIVE
[2020-12-13] MEDS: cefTRIAXone/NS 1 GM/50 ML 1 GM/50 ML BAG IV SCH (17:39)
[2020-12-14] MEDS: LACTATED RINGERS 1,000 ML IV SCH (01:42)
--- NOTE | 2020-12-14 10:08 | Progress Note ---
Assessment and Plan - Patient Problems (1) SIRS (systemic inflammatory response syndrome) Current Visit: Yes Status: Acute Plan to address problem: --Currently with fever of unknown origin --Continue Recephin 1g q24h --APA consulted for assistance --COVID neg --Blood and urine cultures negative --Stool cultures/H pylori cultures pending collection of specimen --Continue 24H TP wnl, TP 25 --TSH wnl --Zofran PRN, advance diet as tolerated --Replete lytes prn -- records reviewed --Dispo pending completion of assessment (2) Twin gestation in second trimester Current Visit: Yes Status: Acute Qualifiers: Multiple gestation type: monochorionic and monoamniotic Qualified Code(s): O30.012 - Twin , monochorionic/monoamniotic, second trimester Plan to address problem: --FHTs x 2 confirmed on admission --repeat FHTs qshift Subjective - Subjective Date of service: 12/14/20 Principal diagnosis: fever of unknown origin, mono/mono twins at 17 weeks Interval history: Patient reports that she is currently feeling well. Denies N/V/F/C. Reports having watery BM yesterday but reports that she didn't know that stool with requested. Will attempt to produce stool today. Denies urinary complaints. COVID neg. Cultures neg. Objective - Vital Signs Vital Signs: Vital Signs - 12hr 12/14/20 12/14/20 00:30 08:26 Temperature 98.2 F 97.8 F Pulse Rate 95 H 93 H Respiratory 20 18 Rate Blood Pressure 106/56 98/59 O2 Sat by Pulse 98 98 Oximetry - Exam Cardiovascular: Regular rate Lungs: Clear to auscultation, Normal air movement Abdomen: Present: normal appearance, other (gravid) FHR: auscultation normal Uterine Contraction Monitor Mode: External Uterine Contraction Pattern: Absent - Labs Labs: Abnormal Labs 12/12/20 12/12/20 12/12/20 14:20 14:20 14:20 WBC 12.2 H MCHC 35 H RDW 15.3 H Seg Neuts % (Manual) 77.0 H Lymphocytes % (Manual) 5.0 L Seg Neutrophils # Man 9.4 H Lymphocytes # (Manual) 0.6 L Sodium 136 L Potassium 3.4 L Carbon Dioxide 19 L Glucose 109 H Lactic Acid Magnesium AST 50 H Albumin 3.7 L Lipase 11 L HCG, Quant 52934 H Ur Specific [place] Urine Total Protein 12/12/20 12/12/20 12/12/20 14:20 14:20 16:55 WBC MCHC RDW Seg Neuts % (Manual) Lymphocytes % (Manual) Seg Neutrophils # Man Lymphocytes # (Manual) Sodium Potassium Carbon Dioxide Glucose Lactic Acid 3.10 H* Magnesium 1.40 L AST Albumin Lipase HCG, Quant Ur Specific [place] 1.032 H Urine Total Protein 12/13/20 23:00 WBC MCHC RDW Seg Neuts % (Manual) Lymphocytes % (Manual) Seg Neutrophils # Man Lymphocytes # (Manual) Sodium Potassium Carbon Dioxide Glucose Lactic Acid Magnesium AST Albumin Lipase HCG, Quant Ur Specific [place] Urine Total Protein 25 H Laboratory Results - last 24 hr 12/13/20 12/13/20 12/13/20 12:40 12:41 12:41 TSH 2.640 Free T4 0.86 Urine Total Volume Ur Total Protein 24 Hr Urine Total Protein Urine Opiates Screen Presumptive negative Urine Methadone Screen Presumptive negative Ur Barbiturates Screen Presumptive negative Ur Phencyclidine Scrn Presumptive negative Ur Amphetamines Screen Presumptive negative U Benzodiazepines Scrn Presumptive negative Urine Cocaine Screen Presumptive negative U Marijuana (THC) Screen Presumptive negative Drugs of Abuse Note Disclamer Coronavirus (PCR) 12/13/20 12/13/20 23:00 Unknown TSH Free T4 Urine Total Volume 750 Ur Total Protein 24 Hr 187.50 Urine Total Protein 25 H Urine Opiates Screen Urine Methadone Screen Ur Barbiturates Screen Ur Phencyclidine Scrn Ur Amphetamines Screen U Benzodiazepines Scrn Urine Cocaine Screen U Marijuana (THC) Screen Drugs of Abuse Note Coronavirus (PCR) Negative
[2020-12-14 10:24] LABS: Basophils % (Auto) 0.4 % (0.0-1.8); Eosinophils # (Auto) 0.3 K/mm3 (0.0-0.4); Eosinophils % (Auto) 3.2 % (0.0-4.3); Hematocrit 33.5 % (30.3-42.9); Hemoglobin 11.5 gm/dl (10.1-14.3); Lymphocytes # (Auto) 1.9 K/mm3 (1.2-5.4); Lymphocytes % (Auto) 22.5 % (13.4-35.0); Mean Corpuscular HGB Conc 34 % (30-34); Mean Corpuscular Volume 84 fl (79-97); Monocytes # (Auto) 0.7 K/mm3 (0.0-0.8); Monocytes % (Auto) 8.4 % (0.0-7.3); Platelet Count 241 K/mm3 (140-440); Red Cell Distribution Width 15.1 % (13.2-15.2)
[2020-12-14 10:31] LABS: Alanine Aminotransferase 56 units/L (7-56); Albumin 2.8 g/dL (3.9-5); Blood Urea Nitrogen 2 mg/dL (7-17); Calcium 8.1 mg/dL (8.4-10.2); Hemolysis Index 94
[2020-12-14 10:34] LABS: BUN/Creatinine Ratio 4
[2020-12-14] MEDS: cefTRIAXone/NS 1 GM/50 ML 1 GM/50 ML BAG IV SCH (14:56)
--- NOTE | 2020-12-14 15:36 | Discharge Summary ---
Providers - Providers Date of Admission: 12/12/20 19:57 Date of discharge: 12/14/20 Attending physician: DAGO AUGUST 12/12/20 20:12 Consult to Physician [CONS] Stat Comment: Consulting Provider: DAGO AUGUST Physician Instructions: Reason For Exam: , vomiting 12/13/20 00:24 Consult to Physician [CONS] Routine Comment: Consulting Provider: KARYNA DE Physician Instructions: Reason For Exam: twin mono/mono gest with N/V/diarrhea/febrile morb Primary care physician: [employer] Hospitalization Reason for admission: other (fever of unknown origin) Hospital course: at 17.4wks with monomono twin gestation with EDC 05/18/21 per pt report. 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 Pt came here because she lives nearby this hospital. Pt denies contractions, leakage of fluid or headache. Admitted at started on Ceftriaxone for fever of unknown origin. Labs and culture unremarkable without an identifiable source of infection. Blood culture and cultures negative. Patient without frequent enough stool to produce sample for testing, so unlikely to be severe diarrhea in nature. Discharged in good condition to follow up with OBGYN provider. Recommend completion of Keflex antibiotics previously taking for presumed UTI. Condition at discharge: Fair Disposition: [id number] TO HOME OR SELFCARE - Discharge Diagnoses (1) SIRS (systemic inflammatory response syndrome) Status: Acute (2) Twin gestation in second trimester Status: Acute Qualifiers: Multiple gestation type: monochorionic and monoamniotic Qualified Code(s): O30.012 - Twin , monochorionic/monoamniotic, second trimester Plan - Provider Discharge Summary Activity: routine Diet: routine Instructions: routine (complete course of previous prescribed Keflex) Additional instructions: [] Smoking cessation referral if applicable(refer to patient education folder for contact #) [] Refer to [facility] Booklet Call your doctor immediately for: * Fever > 100.5 * Heavy vaginal bleeding ( >1 pad per hour) * Severe persistent headache * Shortness of breath * Reddened, hot, painful area to leg or breast * Drainage or odor from incision. * Keep incision clean and dry at all times and follow doctor's instructions regarding bathing/showering - Follow up plan Follow up: PRIMARY CARE, [Primary Care Provider] - 3-5 Days
[2020-12-14 16:43] VITALS: BP 110/62
== END 2020-12-14 17:30 | disposition home or self-care (01) ==
LOC: ED 13:22 → LD 19:57 → OB 12-13 09:04
PROVIDERS: ADMIT Obstetrics & Gynecology; ATTEND Obstetrics & Gynecology
DX: O30.012 Twin pregnancy, monochorionic/monoamniotic, second trimester (principal); Z20.822 Contact with and (suspected) exposure to COVID-19; O26.892 Other specified pregnancy related conditions, second trimester; R65.10 Systemic inflammatory response syndrome (SIRS) of non-infectious origin without acute organ dysfunction; E87.6 Hypokalemia; O23.42 Unspecified infection of urinary tract in pregnancy, second trimester; Z3A.17 17 weeks gestation of pregnancy; Z79.899 Other long term (current) drug therapy
CPT/HCPCS: 36415; 71045; 76805; 76810; 80053; 80307; 81001; 82140; 83690; 83735; 84156; 84439; 84443; 84702; 85025; 86850; 86900; 86901; 87040; 87086; 96361; 96365; 96366; 96375; 96376; 99291; G0378; J0696; J2405; J7030; J7120; U0003; 85007